=== PATIENT | male | born 1985 | race Caucasian/White ===

== ENCOUNTER 2017-08-14 11:51 | Emergency (ER) | payer OTHER ==
[~2017-08-14] VITALS: Ht 175.3 cm; Wt 72.6 kg
[~2017-08-14 11:51] MED LIST: TESSALON PERLE100 MG PO; VENTOLIN HFA 1818 GM INH; ZPAK PO
[2017-08-14 12:15] VITALS: BP 127/77
== END 2017-08-14 12:16 | disposition home or self-care (01) ==
LOC: M.ERS 11:51
DX: S46.812A Strain of other muscles, fascia and tendons at shoulder and upper arm level, left arm, initial encounter (principal); F17.200 Nicotine dependence, unspecified, uncomplicated; X58.XXXA Exposure to other specified factors, initial encounter; Y93.89 Activity, other specified; Y92.89 Other specified places as the place of occurrence of the external cause; Y99.8 Other external cause status

== ENCOUNTER 2018-05-13 17:53 | Emergency (ER) | payer OTHER ==
[~2018-05-13] VITALS: Ht 175.3 cm; Wt 72.6 kg
[2018-05-13] MEDS ORDERED: NORFLEX100 MG PO (21:35)
[2018-05-13] MEDS ORDERED: NAPROSYN500 MG PO (21:35)
[2018-05-13] MEDS ORDERED: NORCO 5-325 TA1 EACH PO (21:35)
[2018-05-13 22:07] VITALS: BP 136/74
== END 2018-05-13 22:08 | disposition home or self-care (01) ==
LOC: M.ERS 17:53
DX: S22.049A Unspecified fracture of fourth thoracic vertebra, initial encounter for closed fracture (principal); W19.XXXA Unspecified fall, initial encounter; Y93.89 Activity, other specified; Y92.89 Other specified places as the place of occurrence of the external cause; Y99.8 Other external cause status

== ENCOUNTER 2018-05-19 13:27 | Emergency (ER) | payer OTHER ==
[~2018-05-19] VITALS: Ht 175.3 cm; Wt 72.6 kg
[~2018-05-19 13:27] MED LIST changes: +NAPROSYN500 MG PO; +NORCO 5-325 TA1 EACH PO; +NORFLEX100 MG PO
[2018-05-19] MEDS ORDERED: NORFLEX100 MG PO (14:02)
[2018-05-19] MEDS ORDERED: NORCO 5-325 TA1 EACH PO (14:02)
[2018-05-19 14:21] VITALS: BP 157/94
== END 2018-05-19 14:22 | disposition home or self-care (01) ==
LOC: M.ERS 13:27
DX: M54.5 Low back pain (principal); M54.6 Pain in thoracic spine

== ENCOUNTER 2018-09-15 15:54 | Emergency (ER) | payer OTHER ==
[~2018-09-15] VITALS: Ht 175.3 cm; Wt 81.7 kg
[2018-09-15] MEDS ORDERED: NORCO 5-325 TA1 EACH PO (17:13)
[2018-09-15] MEDS ORDERED: NAPROSYN500 MG PO (17:13)
[2018-09-15] MEDS ORDERED: NORFLEX100 MG PO (17:13)
[2018-09-15 17:30] VITALS: BP 140/90
== END 2018-09-15 17:30 | disposition home or self-care (01) ==
LOC: M.ERS 15:54
DX: M54.6 Pain in thoracic spine (principal); G89.29 Other chronic pain

== ENCOUNTER 2018-12-20 11:14 | Emergency (ER) | payer OTHER ==
[~2018-12-20] VITALS: Ht 175.3 cm; Wt 81.7 kg
[2018-12-20] MEDS ORDERED: OCUFLOX5 ML OPHTHALMIC (12:04)
[2018-12-20] MEDS ORDERED: IBUPROFEN 800800 M1 PO (12:04)
[2018-12-20] MEDS ORDERED: ACETAMINOPHEN-1 EAC1 PO (12:04)
[2018-12-20 12:15] VITALS: BP 116/75
== END 2018-12-20 12:16 | disposition home or self-care (01) ==
LOC: M.ERS 11:14
DX: S00.212A Abrasion of left eyelid and periocular area, initial encounter (principal); F17.200 Nicotine dependence, unspecified, uncomplicated; W22.8XXA Striking against or struck by other objects, initial encounter; Y92.89 Other specified places as the place of occurrence of the external cause; Y93.89 Activity, other specified; Y99.8 Other external cause status

== ENCOUNTER 2019-01-18 12:13 | Emergency (ER) | payer OTHER ==
[~2019-01-18] VITALS: Ht 175.3 cm; Wt 81.7 kg
[~2019-01-18 12:13] MED LIST changes: +ACETAMINOPHEN-1 EAC1 PO; +IBUPROFEN 800800 M1 PO; +OCUFLOX5 ML OPHTHALMIC
[2019-01-18 12:31] LABS: URINE BILIRUBIN NEGATIVE (Negative); URINE BLOOD NEGATIVE (Negative); URINE CLARITY CLEAR; URINE COLOR YELLOW; URINE GLUCOSE-RANDOM NEGATIVE (Negative); URINE KETONES NEGATIVE (Negative); URINE LEUKOCYTES-REFLEX NEGATIVE (Negative); URINE NITRITE-REFLEX NEGATIVE (Negative); URINE PROTEIN NEGATIVE (Negative); URINE UROBILINOGEN 0.2 E.U./dl (0.2-1.0)
[2019-01-18 12:42] LABS: ABSOLUTE EOSINOPHILS 0.1 thou/uL (0.0-0.7); ABSOLUTE LYMPHOCYTES 2.2 thou/uL (0.8-5.3); ABSOLUTE MONOCYTES 0.4 thou/uL (0.0-1.2); ABSOLUTE NEUTROPHILS 1.9 thou/uL (1.6-8.1); BASOPHILS 0.3 %; EOSINOPHILS 1.5 %; HEMATOCRIT 40.7 % (42.0-52.0); HEMOGLOBIN 13.7 gm/dL (14.0-18.0); LYMPHOCYTES 47.4 %; MCH 30.3 pg (26.0-34.0); MCHC 33.7 g/dL (28.0-37.0); MCV 89.9 fL (80.0-100.0); MONOCYTES 8.8 %; MPV 7.1 fl. (7.2-11.1); NUCLEATED RBCS 0 /100WBC; PLATELET COUNT* 312 thou/uL (150-400); RBC 4.52 mil/uL (4.50-6.00); RDW-CV 13.2 % (10.5-14.5); WBC 4.6 thou/uL (4.0-11.0)
[2019-01-18 12:55] LABS: CALCIUM 9.1 mg/dL (8.5-10.1)
[2019-01-18 13:00] LABS: TOTAL BILIRUBIN 1.2 mg/dL (<0.1-1.0); TOTAL PROTEIN 7.1 g/dL (6.4-8.2)
[2019-01-18] MEDS ORDERED: BACTRIM DS TAB1 EACH PO (14:54)
[2019-01-18 15:14] VITALS: BP 138/72
== END 2019-01-18 15:14 | disposition home or self-care (01) ==
LOC: M.ERS 12:13
PROVIDERS: Physician Assistant
DX: N50.3 Cyst of epididymis (principal); R39.15 Urgency of urination; R59.1 Generalized enlarged lymph nodes; F17.210 Nicotine dependence, cigarettes, uncomplicated

== ENCOUNTER 2019-01-27 09:06 | Emergency (ER) | payer OTHER ==
[~2019-01-27] VITALS: Ht 175.3 cm; Wt 81.7 kg
[~2019-01-27 09:06] MED LIST changes: +BACTRIM DS TAB1 EACH PO
[2019-01-27 10:53] LABS: URINE BLOOD 3+ (Negative); URINE CLARITY CLEAR; URINE COLOR YELLOW; URINE GLUCOSE-RANDOM NEGATIVE (Negative); URINE KETONES TRACE (Negative); URINE LEUKOCYTES-REFLEX NEGATIVE (Negative); URINE PROTEIN 2+ (Negative); URINE SPECIFIC GRAVITY >= 1.030 (1.005-1.030); URINE UROBILINOGEN 0.2 E.U./dl (0.2-1.0)
[2019-01-27 10:56] LABS: ICTOTEST (BILI CONFIRMATORY) Negative (Negative); URINE BILIRUBIN 1+ (Negative); URINE NITRITE-REFLEX POSITIVE (Negative)
[2019-01-27 10:59] LABS: BACTERIA-REFLEX 1-9 Few /HPF (None Seen); CASTS None Seen /LPF (None Seen); CRYSTALS None Seen /LPF (None Seen); MUCUS 4-6 Moderate strn/LPF (None Seen); SQUAMOUS 0-3 Few /LPF (0-3); URINE RBC >20 Many /HPF (0-2); URINE WBC-REFLEX 0-5 Rare /HPF (0-5)
[2019-01-27] MEDS ORDERED: FLOMAX0.4 MG PO (11:03)
[2019-01-27] MEDS ORDERED: PYRIDIUM200 MG PO (11:03)
[2019-01-27] MEDS ORDERED: CIPROFLOXACIN500 M1 PO (11:03)
[2019-01-27 11:49] VITALS: BP 116/74
== END 2019-01-27 11:49 | disposition home or self-care (01) ==
LOC: M.ERS 09:06
PROVIDERS: Personal Emergency Response Attendant
DX: N39.0 Urinary tract infection, site not specified (principal); R31.9 Hematuria, unspecified; F17.210 Nicotine dependence, cigarettes, uncomplicated

== ENCOUNTER 2019-04-09 10:43 | Emergency (ER) | payer OTHER ==
[~2019-04-09] VITALS: Ht 175.3 cm; Wt 72.6 kg
[~2019-04-09 10:43] MED LIST changes: +CIPROFLOXACIN500 M1 PO; +FLOMAX0.4 MG PO; +PYRIDIUM200 MG PO
[2019-04-09] MEDS ORDERED: AMOXICILLIN875 MG PO (11:53)
[2019-04-09 12:04] VITALS: BP 126/67
== END 2019-04-09 12:05 | disposition home or self-care (01) ==
LOC: M.ERS 10:43
DX: J02.0 Streptococcal pharyngitis (principal); F17.210 Nicotine dependence, cigarettes, uncomplicated

== ENCOUNTER 2020-06-25 12:59 | Emergency (ER) | payer OTHER ==
[~2020-06-25] VITALS: Ht 175.3 cm; Wt 72.6 kg
[~2020-06-25 12:59] MED LIST changes: +AMOXICILLIN875 MG PO
[2020-06-25] MEDS ORDERED: TRAZODONE HCL50 MG PO (13:13)
[2020-06-25] MEDS ORDERED: XANAX 0.25 MG0.25 MG PO (13:14)
[2020-06-25] MEDS ORDERED: ACETAMINOPHEN-1 EAC2 PO (13:43)
[2020-06-25] MEDS ORDERED: magic mouthwash SW&SWALLOW (13:43)
[2020-06-25 14:11] VITALS: BP 146/85
== END 2020-06-25 14:11 | disposition home or self-care (01) ==
LOC: M.ERS 12:59
DX: J02.8 Acute pharyngitis due to other specified organisms (principal); B97.89 Other viral agents as the cause of diseases classified elsewhere; Z20.828 Contact with and (suspected) exposure to other viral communicable diseases; F17.210 Nicotine dependence, cigarettes, uncomplicated

== ENCOUNTER 2020-09-03 14:14 | Emergency (ER) | payer OTHER ==
[~2020-09-03] VITALS: Ht 175.3 cm; Wt 77.1 kg
[~2020-09-03 14:14] MED LIST changes: +ACETAMINOPHEN-1 EAC2 PO; +TRAZODONE HCL50 MG PO; +XANAX 0.25 MG0.25 MG PO; +magic mouthwash SW&SWALLOW
[2020-09-03] MEDS ORDERED: NORCO5 PO (15:40)
[2020-09-03] MEDS ORDERED: ZANAFLEX4 MG PO (15:40)
[2020-09-03] MEDS ORDERED: MEDROLDOSEPACK PO (15:40)
[2020-09-03 15:48] VITALS: BP 135/75
--- NOTE | 2020-09-03 17:20 | EKG ---
[place] [address] ELECTROCARDIOGRAM REPORT Name: IVORY BERNARDO III Room: [facility]#: [id number] Admission: 09/03/20 Attend Phys: Discharge: 09/03/20 Date of : 83 Date of Service: 09/03/20 1501 Report #: [id number] THIS REPORT FOR: //name// [facility] ED Test Date: 2020-09-03 Test Time: 15:01:09 Pat Name: IVORY BERNARDO Department: Room: Gender: M Chain Person: CCD : 1985 Requested By: Torie Bowers Order Number: [id number] N[place] MD: Jamey Villasenor Measurements Intervals [place] Rate: 62 P: 53 IN: 172 QRS: 56 QRSD: 88 T: 57 QT: 369 QTc: 375 Interpretive Statements Sinus rhythm Baseline wander in lead(s) II,III,aVF No previous ECG available for comparison Electronically Signed On 09-03-2020 17:20:29 ASSISTANT COOK by Jamey Villasenor [email or web address] <ELECTRONICALLY SIGNED> By: Jamey Villasenor MD, [facility] 09/03/20 1720 1501 1501 Jamey Villasenor MD, [facility] /EPI
== END 2020-09-03 15:48 | disposition home or self-care (01) ==
LOC: M.ERS 14:14
DX: M54.6 Pain in thoracic spine (principal); F17.210 Nicotine dependence, cigarettes, uncomplicated

== ENCOUNTER 2021-01-24 10:25 | Emergency (ER) | payer OTHER ==
[~2021-01-24] VITALS: Ht 175.3 cm; Wt 74.8 kg
[~2021-01-24 10:25] MED LIST changes: +MEDROLDOSEPACK PO; +NORCO5 PO; +ZANAFLEX4 MG PO
[2021-01-24 13:53] LABS: URINE BILIRUBIN NEGATIVE (Negative); URINE BLOOD NEGATIVE (Negative); URINE CLARITY CLEAR; URINE COLOR YELLOW; URINE GLUCOSE-RANDOM NEGATIVE (Negative); URINE KETONES NEGATIVE (Negative); URINE LEUKOCYTES-REFLEX NEGATIVE (Negative); URINE NITRITE-REFLEX NEGATIVE (Negative); URINE PROTEIN NEGATIVE (Negative); URINE SPECIFIC GRAVITY >= 1.030 (1.005-1.030); URINE UROBILINOGEN 0.2 E.U./dl (0.2-1.0)
[2021-01-24 15:47] LABS: ABSOLUTE BASOPHILS 0.1 thou/uL (0.0-0.2); ABSOLUTE EOSINOPHILS 0.1 thou/uL (0.0-0.7); ABSOLUTE LYMPHOCYTES 2.5 thou/uL (0.8-5.3); ABSOLUTE MONOCYTES 0.5 thou/uL (0.0-1.2); ABSOLUTE NEUTROPHILS 3.1 thou/uL (1.6-8.1); BASOPHILS 0.9 %; EOSINOPHILS 1.3 %; HEMATOCRIT 41.5 % (42.0-52.0); HEMOGLOBIN 14.4 gm/dL (14.0-18.0); MCH 30.8 pg (26.0-34.0); MCHC 34.7 g/dL (28.0-37.0); MCV 88.6 fL (80.0-100.0); MONOCYTES 8.3 %; MPV 7.2 fl. (7.2-11.1); NUCLEATED RBCS 0 /100WBC; PLATELET COUNT* 328 thou/uL (150-400); POLYS 49.5 %; RBC 4.68 mil/uL (4.50-6.00); WBC 6.3 thou/uL (4.0-11.0)
[2021-01-24 16:11] LABS: CALCIUM 8.8 mg/dL (8.5-10.1); CREATININE 0.9 mg/dL (0.6-1.3); POTASSIUM 3.9 mmol/L (3.5-5.1)
[2021-01-24 16:16] LABS: ALBUMIN 4.4 g/dL (3.4-5.0); TOTAL BILIRUBIN 1.2 mg/dL (<0.1-1.0); TOTAL PROTEIN 7.5 g/dL (6.4-8.2)
--- NOTE | 2021-01-24 16:22 | EKG ---
[place] [address] ELECTROCARDIOGRAM REPORT Name: IVORY BERNARDO III Room: [facility]#: [id number] Admission: 01/24/21 Attend Phys: Discharge: Date of : 83 Date of Service: 01/24/21 1534 Report #: [id number] THIS REPORT FOR: //name// [facility] ED Test Date: 2021-01-24 Test Time: 15:34:32 Pat Name: IVORY BERNARDO Department: Room: Gender: Health Workers: : 1985 Requested By: Mikhail Eason Order Number: [id number] MD: Lucio Hernandez Measurements Intervals [place] Rate: 63 P: 24 ND: 172 QRS: 35 QRSD: 91 T: 34 QT: 391 QTc: 401 Interpretive Statements Sinus rhythm Baseline wander in lead(s) V2 Compared to ECG 09/03/2020 15:01:09 No significant changes Electronically Signed On 01-24-2021 16:21:55 CDT by Lucio Hernandez [email or web address] <ELECTRONICALLY SIGNED> By: Lucio Hernandez MD, [facility] 01/24/21 1621 1534 1534 Lucio Hernandez MD, [facility] /EPI
[2021-01-24] MEDS ORDERED: ZOFRAN ODT4 MG DISSOLVE (17:13)
[2021-01-24] MEDS ORDERED: HYDROCODON-ACE1 EAC7 PO (17:13)
[2021-01-24 17:24] VITALS: BP 126/81
== END 2021-01-24 17:25 | disposition home or self-care (01) ==
LOC: M.ERS 10:25
PROVIDERS: Emergency Medicine Emergency Medical Services; Nurse Practitioner Family
DX: K52.9 Noninfective gastroenteritis and colitis, unspecified (principal); Z20.822 Contact with and (suspected) exposure to COVID-19; F17.210 Nicotine dependence, cigarettes, uncomplicated

== ENCOUNTER 2021-02-09 20:51 | Emergency (ER) | payer OTHER ==
[~2021-02-09] VITALS: Ht 175.3 cm; Wt 77.1 kg
[~2021-02-09 20:51] MED LIST changes: +HYDROCODON-ACE1 EAC7 PO; +ZOFRAN ODT4 MG DISSOLVE
[2021-02-09] MEDS ORDERED: ZOFRAN ODT4 MG PO (22:46)
[2021-02-09 22:58] VITALS: BP 122/67
--- NOTE | 2021-02-10 10:07 | EKG ---
[place] [address] ELECTROCARDIOGRAM REPORT Name: IVORY BERNARDO III Room: [facility]#: [id number] Admission: 02/09/21 Attend Phys: Discharge: 02/09/21 Date of : 83 Date of Service: 02/09/212106 Report #: [id number] THIS REPORT FOR: //name// [facility] ED Test Date: 2021-02-09 Test Time: 21:07:39 Pat Name: IVORY BERNARDO Department: Room: Gender: Liquor Store Manager: : 1985 Requested By: Nadira Mckinney Order Number: [id number] MD: Lucio Hernandez Measurements Intervals [place] Rate: 83 P: 57 ID: [id number] QRS: 52 QRSD: 86 T: 60 QT: 341 QTc: 401 Interpretive Statements Sinus rhythm Baseline wander in lead(s) V1 Compared to ECG 01/24/2021 15:34:32 No significant changes Electronically Signed On 02-10-2021 10:07:29 CDT by Lucio Hernandez [email or web address] <ELECTRONICALLY SIGNED> By: Lucio Hernandez MD, [facility] 02/10/21 1007 06 06 Lucio Hernandez MD, [facility] /EPI
== END 2021-02-09 22:58 | disposition home or self-care (01) ==
LOC: M.ERS 20:51
DX: R50.9 Fever, unspecified (principal); Z20.822 Contact with and (suspected) exposure to COVID-19; F17.210 Nicotine dependence, cigarettes, uncomplicated

== ENCOUNTER 2021-05-17 10:16 | Emergency (ER) | payer OTHER ==
[~2021-05-17] VITALS: Ht 175.3 cm; Wt 74.8 kg
[~2021-05-17 10:16] MED LIST changes: +ZOFRAN ODT4 MG PO
[2021-05-17] MEDS ORDERED: PENICILLIN VK500 M1 PO (10:30)
[2021-05-17 10:38] VITALS: BP 155/96
== END 2021-05-17 10:39 | disposition home or self-care (01) ==
LOC: M.ERS 10:16
DX: K02.9 Dental caries, unspecified (principal); F17.210 Nicotine dependence, cigarettes, uncomplicated; Z79.899 Other long term (current) drug therapy